=== PATIENT | female | born 1990 | race Caucasian/White ===

== ENCOUNTER 2017-02-27 13:59 | Day surgery (SDC) | payer BC ==
[2017-02-26 09:40] VITALS: BMI 23.9
[~2017-02-27 13:59] MED LIST: DEXAMETHASONE SOD PHOSPHATE 10 MG/ML 1 ML VIAL IV ONE; DEXAMETHASONE SOD PHOSPHATE 4 MG/ML 1 ML VIAL IV ONE; FAMOTIDINE 20 MG/2 ML VIAL IV ONE; HYDROmorphone 1 MG/ML 1 ML SYRINGE IVP PRN; LACTATED RINGERS 1,000 ML IV SCH; MIDAZOLAM 2 MG/2 ML VIAL IV PRN; ONDANSETRON 4 MG/2 ML VIAL IVP ONE; Pre Op ABX Message 1 EACH MISC MISCELLANE ONE; SCOPOLAMINE 1.5MG/72HR PATCH TRANSDERM ONE
[2017-02-27] MEDS ORDERED: LIDOCAINE 1% 20 ML VIAL (10MG/ML) FOR IV START INTRADERMA ONE (14:24)
[2017-02-27] MEDS ORDERED: DEXAMETHASONE SOD PHOS (MDV) 100 MG/10 ML VIAL ONE (14:59)
[2017-02-27] MEDS ORDERED: LIDOCAINE 1% INJ 10MG/ML (20 ML MDV) ONE (14:59)
[2017-02-27] MEDS ORDERED: SUCCINYLCHOLINE CHLORIDE 100 MG/5 ML SYR IV ONE (14:59)
[2017-02-27] MEDS ORDERED: fentaNYL (PF) 50 MCG/ML 2 ML AMP ONE (14:59)
[2017-02-27] MEDS ORDERED: MIDAZOLAM 2 MG/2 ML VIAL ONE (14:59)
[2017-02-27] MEDS ORDERED: PROPOFOL 10 MG/ML 20 ML VIAL IV ONE (14:59)
[2017-02-27 16:03] VITALS: TEMP 98.7
[2017-02-27] MEDS ORDERED: LACTATED RINGERS 1,000 ML IV ONE (16:36)
[2017-02-27 16:51] VITALS: RESP 18
[2017-02-27] MEDS ORDERED: ONDANSETRON 4 MG/2 ML VIAL IVP ONE (17:46)
[2017-02-27] MEDS ORDERED: PROMETHAZINE INJ 6.25 MG in SODIUM CHLORIDE 0.9% 50 ML IVPB STA (18:15)
[2017-02-27] MEDS ORDERED: PROMETHAZINE INJ 25 MG/ML 1 ML VIAL IVPB ONE (18:26)
[2017-02-27 18:39] VITALS: BP 114/73; PULSE 86
--- NOTE | 2017-02-28 06:32 | OP ---
DATE OF SERVICE: SURGEON: ORACIO THORNTON MD ENVIRONMENTAL AIR SPECIALIST: PREOPERATIVE DIAGNOSES: 1. Chronic tonsillitis. 2. Tonsillar hypertrophy. POSTOPERATIVE DIAGNOSES: 1. Chronic tonsillitis. 2. Tonsillar hypertrophy. OPERATION: Tonsillectomy. ANESTHESIA: General. ESTIMATED BLOOD LOSS: Minimal, less than 5 mL. COMPLICATIONS: None. SPECIMENS REMOVED: INDICATIONS: This is a 26-year-old white female who has had difficulties with chronic and recurrent tonsillitis as well as chronic tonsillar enlargement. OPERATIVE FINDINGS: Tonsils +3.5 on the left, +3 on the right. No adenoids noted as she is status post adenoidectomy previously with some scarring in the nasopharynx, but no sign of adenoids. DESCRIPTION OF PROCEDURE: The patient was brought to the operative suite, placed in the supine position. Patient underwent induction of general anesthesia with oral endotracheal intubation without difficulty. The patient was prepped and draped in the usual aseptic fashion. The McIvor mouth gag was placed. The soft palate was palpated. No submucous cleft was noted. Nasopharynx was examined with a mirror exam and the above-noted findings noted and therefore no adenoidectomy was performed. The left tonsil was grasped with a curved Allis clamp and dissected from the tonsillar fossa in a superior to inferior direction using both blunt and electrocautery dissection in a superior to inferior direction until the tonsil was removed. Once the tonsil was removed, hemostasis was gained with suction cautery. Once the hemostasis was gained, attention was turned to the right, where the right tonsil was removed exactly as the left had been. Once this tonsil was removed, hemostasis was gained with suction cautery. Once hemostasis was obtained and remained good in both tonsillar fossae, the patient was suctioned in an orogastric fashion. The patient was allowed to emerge from general anesthesia, having tolerated the procedure well. She was extubated in the operating suite and transferred to postop recovery area in satisfactory condition.
== END 2017-02-27 18:57 | disposition home or self-care (01) ==
LOC: OR 13:59
PROVIDERS: ATTEND Otolaryngology
DX: J35.01 Chronic tonsillitis (principal)
CPT/HCPCS: 81025; 42826; J2250; J1100 ×2; J2550; J2405; J2001; J3010; J1170; J0330; J2704; 88304

== ENCOUNTER → 2019-06-07 | Outpatient (CLI) | payer OTHER | END | disposition home or self-care (01) | LOC: LABWHC1 17:17 | PROVIDERS: ATTEND Obstetrics & Gynecology | DX: Z34.01 Encounter for supervision of normal first pregnancy, first trimester (principal) | CPT/HCPCS: 86850; 86900; 86901 ==

== ENCOUNTER 2020-01-25 06:00 | Inpatient (IN) | payer BC ==
[2020-01-25] MEDS ORDERED: OXYTOCIN 30 UNITS/500 ML NS 30 UNIT in SALINE 1 500ML.BAG IV SCH (07:15)
[2020-01-25] MEDS ORDERED: LIDOCAINE 0.5% (PF) 5 MG/ML (50 ML SDV) SQ PRN (07:15)
[2020-01-25] MEDS ORDERED: METHYLERGONOVINE 0.2 MG/ML 1 ML AMP IM PRN (07:15)
[2020-01-25] MEDS ORDERED: OXYTOCIN 10 UNIT/ML 1 ML VIAL IM PRN (07:15)
[2020-01-25] MEDS ORDERED: CARBOPROST TROMETHAMINE 250 MCG/ML 1 ML AMP IM PRN (07:15)
[2020-01-25] MEDS ORDERED: TERBUTALINE 1 MG/ML VIAL SQ PRN (07:15)
[2020-01-25 07:27] LABS: Basophils % (A) 0 %; Eosinophils # (A) 0.1 k/uL (0-0.7); Eosinophils % (A) 1 %; HCT 39.5 % (34.0-46.0); HGB 13.1 gm/dL (11.4-16.0); Lymphocytes # (A) 2.4 k/uL (1.0-4.8); Lymphocytes % (A) 20 %; MCH 30.5 pg (25.0-35.0); MCHC 33.2 g/dL (31.0-37.0); MCV 91.8 fL (80.0-100.0); Mean Platelet Volume 10.9; Monocytes # (A) 0.5 k/uL (0-1.0); Monocytes % (A) 4 %; Neutrophils # (A) 8.7 k/uL (1.3-7.7); Neutrophils % (A) 73 %; Platelet Count 138 k/uL (150-450); RBC 4.31 m/uL (3.80-5.40); RDW 12.7 % (11.5-15.5); WBC 11.8 k/uL (3.8-10.6)
[2020-01-25] MEDS: LACTATED RINGERS 1,000 ML IV SCH ×2 (07:41→10:09)
[2020-01-25] MEDS ORDERED: fentaNYL (PF) 50 MCG/ML 5 ML AMP ONE (09:40)
[2020-01-25] MEDS ORDERED: ROPIVACAINE 5MG/ML 20ML VIAL ONE (09:40)
[2020-01-25] MEDS ORDERED: SODIUM CHLORIDE 0.9% 100 ML BAG ONE (09:40)
--- NOTE | 2020-01-25 12:54 | P.HPOB ---
History of Present Illness H&P Date: 01/25/20 Chief Complaint: Induction of Labor 29 year old presents at 39 weeks 5 days for induction of labor. Her cervix is 3/90/-2. She is bud irregularly. heart tones 130 with moderate variability and reactive. Review of Systems All systems: negative Constitutional: Denies chills, Denies fever Eyes: denies blurred vision, denies pain Ears, nose, mouth and throat: Denies headache, Denies sore throat Cardiovascular: Denies chest pain, Denies shortness of breath Respiratory: Denies cough Gastrointestinal: Denies abdominal pain, Denies diarrhea, Denies nausea, Denies vomiting Genitourinary: Denies dysuria, Denies hematuria Musculoskeletal: Denies myalgias Integumentary: Denies pruritus, Denies rash Neurological: Denies numbness, Denies weakness Psychiatric: Denies anxiety, Denies depression Endocrine: Denies fatigue, Denies weight change Past Medical History Past Medical History: No Reported History Additional Past Medical History / Comment(s): kidney stone History of Any Multi-Drug Resistant Organisms: None Reported Past Surgical History: Adenoidectomy, Tonsillectomy Past Anesthesia/Blood Transfusion Reactions: No Reported Reaction Additional Past Anesthesia/Blood Transfusion Reaction / Comment(s): no hx blood transfusion Past Psychological History: No Psychological Hx Reported Smoking Status: Never smoker Past Alcohol Use History: None Reported Past Drug Use History: None Reported - Past Family History Mother Family Medical History: No Reported History Father Family Medical History: No Reported History Additional Family Medical History / Comment(s): father's mother had mesothilioma lung CA Medications and Allergies Home Medications Medication Instructions Recorded Confirmed Type Pnv No.95/Ferrous Fum/Folic AC 1 tab PO DAILY 01/25/20 01/25/20 History [ Multivitamin Tablet] Allergies Allergy/AdvReac Type Severity Reaction Status Date / Time No Known Allergies Allergy Verified 01/25/20 06:16 Exam Osteopathic Statement: *. No significant issues noted on an osteopathic structu ral exam other than those noted in the History and Physical/Consult. Vital Signs Temp Resp BP Pulse Ox 01/25/20 07:26 96.9 F L 16 125/86 97 Intake and Output 01/24/20 01/25/20 01/25/20 22:59 06:59 14:59 Other: Weight 82.554 kg 82.554 kg Heart: RRR Lungs: CTAB Abdomen: soft, gravid, nontender Extremeties: neg zheng's Results Result Diagrams: 01/25/20 06:34 Abnormal Lab Results - Last 24 Hours (Table) 01/25/20 Range/Units 06:34 WBC 11.8 H (3.8-10.6) k/uL Plt Count 138 L (150-450) k/uL Neutrophils # 8.7 H (1.3-7.7) k/uL Assessment and Plan (1) Normal labor Current Visit: Yes Status: Acute Code(s): O80 - ENCOUNTER FOR FULL-TERM UNCOMPLICATED DELIVERY; Z37.9 - OUTCOME OF DELIVERY, UNSPECIFIED SNOMED Code(s): 18324999 Plan: 1. induction of labor with amniotomy and pitocin 2. anticipate normal vaginal delivery
[2020-01-25] MEDS ORDERED: diphenhydrAMINE 50 MG/ML 1 ML VIAL IVP PRN ×2 (15:24)
[2020-01-25] MEDS ORDERED: SIMETHICONE 80 MG CHEWABLE PO PRN (15:24)
[2020-01-25] MEDS ORDERED: ACETAMINOPHEN TAB 325 MG TAB PO PRN (15:24)
[2020-01-25] MEDS ORDERED: diphenhydrAMINE 25 MG CAP PO PRN (15:24)
[2020-01-25] MEDS ORDERED: ZOLPIDEM 5 MG TAB PO PRN (15:24)
[2020-01-25] MEDS ORDERED: diphenhydrAMINE 50 MG CAP PO PRN (15:24)
[2020-01-25] MEDS ORDERED: LANOLIN CREAM 5 GM TUBE TOPICAL PRN (15:24)
[2020-01-25] MEDS ORDERED: BENZOCAINE/MENTHOL SPRAY 1 GM/SPRAY AEROSOL TOPICAL PRN (15:24)
[2020-01-25] MEDS ORDERED: HYDROCORTISONE 2.5% RECTAL CREAM 30 GM TUBE RECTAL PRN (15:24)
[2020-01-25] MEDS ORDERED: WITCH HAZEL 1 EACH MED..PAD TOPICAL PRN (15:24)
[2020-01-25] MEDS ORDERED: OXYTOCIN 20 UNITS/1000 ML NS 1,000 ML IV SCH (15:30)
[2020-01-25] MEDS: IBUPROFEN 600 MG TAB PO PRN (15:34)
[2020-01-25] MEDS: SENNOSIDES-DOCUSATE SODIUM 1 EACH TAB PO SCH (20:52)
[2020-01-25] MEDS ORDERED: guaiFENesin-DM 100-10MG/5ML 10 ML CUP PO PRN (20:58)
[2020-01-25] MEDS ORDERED: BENZOCAINE/MENTHOL LOZENG 1 EACH LOZENGE MUCOUS MEM PRN (20:59)
[2020-01-26] MEDS: IBUPROFEN 600 MG TAB PO PRN ×2 (07:59→18:52)
[2020-01-26] MEDS: SENNOSIDES-DOCUSATE SODIUM 1 EACH TAB PO SCH ×2 (07:59→20:34)
--- NOTE | 2020-01-26 11:25 | P.PROBDLV ---
Vaginal Delivery Note - . Vaginal Delivery Note: 29 year old presents at 39 weeks 5 days for induction of labor. Her cervix is 3/90/-2. She is bud irregularly. heart tones 130 with moderate variability and reactive. Amniotomy was performed at 7:13 AM clear fluid noted. Pitocin was also started. When she was uncomfortable she did get an epidural. Her cervix was completely dilated at 1335. She pushed, and delivered a viable male infant over midline episiotomy under epidural anesthesia. Head delivered OA, anterior shoulder delivered gentle downward guidance followed by posterior shoulder and rest of body. Nose and mouth bulb suctioned, cord clamped and cut, infant placed mother's abdomen. Apgars 7, 9, weight 7 lbs. 7 oz. Placenta delivered spontaneously, intact with three-vessel cord at 1451. Vagina, cervix, perineum inspected. Second-degree midline episiotomy was repaired with 2-0 Vicryl and 3-0 Vicryl. Estimated blood loss 200 mL. Mother and baby in stable condition.
--- NOTE | 2020-01-26 11:27 | P.DS ---
Providers Date of admission: 01/25/20 06:02 Expected date of discharge: 01/26/20 Attending physician: Cari Casper Primary care physician: Stated None - Discharge Diagnosis(es) (1) Normal labor Current Visit: Yes Status: Resolved (2) Normal vaginal delivery Current Visit: Yes Status: Acute Hospital Course: Patient presented for induction of labor. She underwent normal vaginal delivery. Her course was uncomplicated. She'll be discharged home day #1 in stable condition to follow-up with me in 6 weeks. Plan - Discharge Summary New Discharge Prescriptions: New Ibuprofen [Motrin] 600 mg PO Q6HR PRN #30 tab PRN Reason: Mild Pain Or Fever >= 100.5 No Action Pnv No.95/Ferrous Fum/Folic AC [ Multivitamin Tablet] 1 tab PO DAILY Discharge Medication List Pnv No.95/Ferrous Fum/Folic AC [ Multivitamin Tablet] 1 tab PO DAILY 01/25/20 [History] Ibuprofen [Motrin] 600 mg PO Q6HR PRN #30 tab 01/26/20 [Rx] Follow up Appointment(s)/Referral(s): Cari Casper DO [Doctor of Osteopathic Medicine] - 6 Weeks Discharge Disposition: HOME SELF-CARE
[2020-01-26 17:07] VITALS: RESP 16
[2020-01-26 23:29] VITALS: TEMP 98.1
[2020-01-27 08:59] VITALS: BP 115/79; PULSE 79
[2020-01-27] MEDS: SENNOSIDES-DOCUSATE SODIUM 1 EACH TAB PO SCH (11:26)
== END 2020-01-27 16:05 | disposition home or self-care (01) | DRG 807 ==
LOC: 4FBP 06:02
PROVIDERS: ADMIT Obstetrics & Gynecology; ATTEND Obstetrics & Gynecology
PROC: 0W8NXZZ Division of Female Perineum, External Approach (ICD-10-PCS; principal; 2020-01-25 06:00)
PROC: 10E0XZZ Delivery of Products of Conception, External Approach (ICD-10-PCS; principal; 2020-01-25 06:00)
PROC: 00HU33Z Insertion of Infusion Device into Spinal Canal, Percutaneous Approach (ICD-10-PCS; principal; 2020-01-25 06:00)
PROC: 3E0R3BZ Introduction of Anesthetic Agent into Spinal Canal, Percutaneous Approach (ICD-10-PCS; principal; 2020-01-25 06:00)
DX: O80 Encounter for full-term uncomplicated delivery (principal); Z37.0 Single live birth; Z3A.39 39 weeks gestation of pregnancy; Z87.442 Personal history of urinary calculi; Z80.1 Family history of malignant neoplasm of trachea, bronchus and lung
CPT/HCPCS: 85025; 86850; 86900; 86901

== ENCOUNTER 2023-07-03 05:47 | Inpatient (IN) | payer BC ==
[2023-07-03] MEDS ORDERED: miSOPROStoL 200 MCG TAB PO PRN (06:15)
[2023-07-03] MEDS ORDERED: LIDOCAINE 0.5% (PF) 5 MG/ML (50 ML SDV) SQ PRN (06:15)
[2023-07-03] MEDS ORDERED: LACTATED RINGERS 1,000 ML IV SCH (06:15)
[2023-07-03] MEDS ORDERED: OXYTOCIN 10 UNIT/ML 1 ML VIAL IM PRN (06:15)
[2023-07-03] MEDS ORDERED: TRANEXAMIC 1,000 MG/100ML-NACL 1,000 MG in EMPTY BAG 1 BAG IV PRN (06:15)
[2023-07-03] MEDS ORDERED: TERBUTALINE 1 MG/ML VIAL SQ PRN (06:15)
[2023-07-03] MEDS ORDERED: METHYLERGONOVINE 0.2 MG/ML 1 ML AMP IM PRN (06:15)
[2023-07-03] MEDS ORDERED: OXYTOCIN 30 UNITS/500 ML NS 30 UNIT in SALINE 1 500ML.BAG IV SCH ×2 (06:15→08:20)
[2023-07-03] MEDS ORDERED: CARBOPROST TROMETHAMINE 250 MCG/ML 1 ML AMP IM PRN (06:15)
[2023-07-03 06:25] LABS: Basophils # (A) 0.1 k/uL (0-0.2); Basophils % (A) 0 %; Eosinophils # (A) 0.2 k/uL (0-0.7); Eosinophils % (A) 1 %; HCT 42.7 % (34.0-46.0); HGB 14.5 gm/dL (11.4-16.0); Lymphocytes # (A) 2.7 k/uL (1.0-4.8); Lymphocytes % (A) 14 %; MCH 30.8 pg (25.0-35.0); MCV 90.4 fL (80.0-100.0); Mean Platelet Volume 12.8; Monocytes # (A) 0.7 k/uL (0-1.0); Monocytes % (A) 4 %; Neutrophils # (A) 14.8 k/uL (1.3-7.7); Neutrophils % (A) 79 %; RBC 4.73 m/uL (3.80-5.40); RDW 13.3 % (11.5-15.5); WBC 18.7 k/uL (3.8-10.6)
[2023-07-03 06:27] LABS: Platelet Count 92 k/uL (150-450)
--- NOTE | 2023-07-03 07:47 | P.HPOB ---
History of Present Illness H&P Date: 07/03/23 Chief Complaint: Contractions This is a 32-year-old female 2 para 1 at 39-5/7 weeks with an estimated date of confinement of 07/05/2023, who presented with complaints of contractions that started earlier this morning and became regular and strong. She has seen Dr. Casper for her care. course has been complicated by thrombocytopenia and she has seen hematology. She has not received any platelet transfusions. labs: Group B streptococcus-negative One hour Glucola-136, three-hour Glucola-within normal limits Blood type-A+ Antibody screen-negative Rubella-immune RPR-nonreactive HIV-nonreactive Hepatitis C virus-negative Random glucose-114 Hepatitis B surface antigen-negative GC/chlamydia/Trichomonas-negative Obstetrical history: . History of 1 vaginal delivery at term. Social history: She is . She works as a teacher. Review of Systems Constitutional: Denies chills, Denies fever Eyes: denies blurred vision, denies pain Ears, nose, mouth and throat: Denies headache, Denies sore throat Cardiovascular: Denies chest pain, Denies shortness of breath Respiratory: Denies cough Gastrointestinal: Reports abdominal pain (Contractions) Genitourinary: Reports pelvic pain, Reports Musculoskeletal: Reports low back pain Integumentary: Denies pruritus, Denies rash Neurological: Denies numbness, Denies weakness Psychiatric: Denies anxiety, Denies depression Past Medical History Past Medical History: No Reported History Additional Past Medical History / Comment(s): kidney stone History of Any Multi-Drug Resistant Organisms: None Reported Past Surgical History: Adenoidectomy, Tonsillectomy Past Anesthesia/Blood Transfusion Reactions: No Reported Reaction Additional Past Anesthesia/Blood Transfusion Reaction / Comment(s): no hx blood transfusion Past Psychological History: No Psychological Hx Reported Smoking Status: Never smoker Past Alcohol Use History: None Reported Past Drug Use History: None Reported - Past Family History Mother Family Medical History: No Reported History Father Family Medical History: No Reported History Additional Family Medical History / Comment(s): father's mother had mesothilioma lung CA Medications and Allergies Home Medications Medication Instructions Recorded Confirmed Type Pnv No.95/Ferrous Fum/Folic AC 1 tab PO DAILY 01/25/20 07/03/23 History [ Multivitamin Tablet] Allergies Allergy/AdvReac Type Severity Reaction Status Date / Time No Known Allergies Allergy Verified 07/03/23 05:53 Exam Osteopathic Statement: *. No significant issues noted on an osteopathic structural exam other than those noted in the History and Physical/Consult. Vital Signs Temp Pulse Resp BP Pulse Ox 07/03/23 06:22 97.9 F 89 18 124/82 100 Intake and Output 07/02/23 07/03/23 07/03/23 22:59 06:59 14:59 Other: Weight 81.647 kg Gen.: Gravid female in mild distress due to contractions HEENT: Within normal limits Heart: Regular rate and rhythm Lungs: Clear to auscultation bilaterally Abdomen: Cervix: Currently is 9 cm with bulging bag artificial rupture membranes is carried out with clear fluid noted. heart tones: Reactive with accelerations and moderate variability, occa sional variable decelerations which are mild. Contractions: Every 2-3 minutes Extremities: Negative Homans Results Result Diagrams: 07/03/23 06:14 Abnormal Lab Results - Last 24 Hours (Table) 07/03/23 Range/Units 06:14 WBC 18.7 H (3.8-10.6) k/uL Plt Count 92 L (150-450) k/uL Neutrophils # 14.8 H (1.3-7.7) k/uL Assessment and Plan (1) 39 weeks gestation of Current Visit: Yes Status: Acute Code(s): Z3A.39 - 39 WEEKS GESTATION OF SNOMED Code(s): 77435467 (2) Thrombocytopenia affecting Current Visit: Yes Status: Acute Code(s): O99.119 - OTH DIS OF BLD/BLD-FORM ORG/IMMUN MECHNSM COMP PREG,UNSP TRI; D69.6 - THROMBOCYTOPENIA, UNSPECIFIED SNOMED Code(s): 860392361 Plan: Admission for active labor. Expectant management. Epidural was not able to be given due to her platelet count.
--- NOTE | 2023-07-03 08:04 | P.PROBDLV ---
Vaginal Delivery Note - . Vaginal Delivery Note: 32-year-old presents at 39 weeks and 5 days in active labor. Her cervix was 6 cm dilated when she arrived. She is bud every 2-4 minutes. heart tones 135 with moderate variability and reactive. Amniotomy performed at 734 and clear fluid noted. She was completely dilated by 7:48 AM. She pushed, delivered a viable female over intact perineum at 7:50 AM. Head delivered OA, nuchal cord 1 easily reduced, anterior shoulder delivered gentle downward guidance for by posterior shoulder and rest of body. Nose and mouth bulb suctioned, cord clamped and cut, placed mother's abdomen. Apgars 8, 9, weight 7 lbs. 13 oz. Placenta delivered spontaneously, intact with three- vessel cord at 751. Vagina, cervix, perineum inspected. First-degree. Periurethral laceration was repaired with 3-0 Vicryl. Estimated blood loss 150 mL. Mother and baby in stable condition.
--- NOTE | 2023-07-03 08:06 | P.MSEPDOC ---
Presenting Problems - Arrival Data Date of Arrival on Unit: 07/03/23 Time of Arrival on Unit: 05:58 Mode of Transport: Ambulatory - Complaint OB-Reason for Admission/Chief Complaint: Possible Onset of Labor Medical History - Information : 2 Para: 1 Term: 1 : 0 Abortions: Spontaneous or Elective: 0 Number of Living Children: 1 - Gestational Age Gestational Age by LUANNE (wks/days): 39 Weeks and 5 Days Review of Systems - Review of Systems Constitutional: No problems Breast: No problems ENT: No problems Cardiovascular: No problems Respiratory: No problems Gastrointestinal: No problems Genitourinary: No problems Musculoskeletal: No problems Neurological: No problems Skin: No problems Vital Signs - Temperature Temperature: 97.9 F Temperature Source: Temporal Artery Scan - Pulse Pulse Oximetery Pulse Rate: 89 Pulse Assessment Method: Pulse Oximetry - Respirations Respiratory Rate: 18 Oxygen Delivery Method: Room Air O2 Sat by Pulse Oximetry: 100 - Blood Pressure Right Arm Blood Pressure: 124/82 Blood Pressure Mean: 96 Medical Screen Scoring - Cervical Exam Dilation (cm): 6 Effacement (%): 100 Station: -3 Membranes: Intact - Uterine Contractions Frequency From (mins): 2 Frequency To (mins): 3 Duration From (seconds): 40 Duration To (seconds): 80 Intensity: Strong Resting: Soft to palpation - Assessment - Baby A Baseline FHR: 145 Heart Rate - NICHD Category: Category I (Normal) NST: Reactive Physician Notification - Physician Notified Physician Notified Date: 07/03/23 Physician Notified Time: 06:22 Physician: Beryl Nolasco Order Received: Yes Maternal Triage Index - Maternal Triage Index Presenting for scheduled procedure w/no complaint: No - Stat/Priority 1 Stat Priority 1: No - Urgent/Priority 2 Urgent Priority 2: No - Prompt/Priority 3 Prompt Priority 3: No - Non-Urgent/Priority 4 Non-Urgent Priority 4: Yes Criteria Met for Priority 4: Pt is a with LUANNE 07/05/23 here at 39.5 weeks of gestation with c/o UC's since [id number]. Disposition - Disposition OB Disposition: Admit Transferred to:: [facility] I agree with the RN Medical Screening Exam: Yes Case reviewed; plan agreed upon as documented in EMR&OBIX.: Yes Diagnosis: ENCOUNTER FOR FULL-TERM UNCOMPLICATED DELIVERY
[2023-07-03] MEDS ORDERED: diphenhydrAMINE 50 MG CAP PO PRN (08:20)
[2023-07-03] MEDS ORDERED: diphenhydrAMINE 25 MG CAP PO PRN (08:20)
[2023-07-03] MEDS ORDERED: ZOLPIDEM 5 MG TAB PO PRN (08:20)
[2023-07-03] MEDS ORDERED: diphenhydrAMINE 50 MG/ML 1 ML VIAL IVP PRN ×2 (08:20)
[2023-07-03] MEDS ORDERED: SIMETHICONE 80 MG CHEWABLE PO PRN (08:20)
[2023-07-03] MEDS ORDERED: ACETAMINOPHEN TAB 325 MG TAB PO PRN (08:20)
[2023-07-03] MEDS ORDERED: LANOLIN CREAM 5 GM TUBE TOPICAL PRN (08:20)
[2023-07-03] MEDS ORDERED: HYDROCORTISONE 2.5% RECTAL CREAM 30 GM TUBE RECTAL PRN (08:20)
[2023-07-03] MEDS ORDERED: BENZOCAINE/MENTHOL SPRAY 1 GM/SPRAY AEROSOL TOPICAL PRN (08:20)
[2023-07-03] MEDS: IBUPROFEN 600 MG TAB PO PRN ×2 (08:29→20:42)
[2023-07-03 09:00] VITALS: RESP 16
[2023-07-03] MEDS: PRENATAL VIT-IRON-FOLIC ACID 1 EACH TABLET PO SCH (14:43)
[2023-07-03] MEDS: SENNOSIDES-DOCUSATE SODIUM 1 EACH TAB PO SCH ×2 (14:43→20:43)
[2023-07-03 20:53] VITALS: TEMP 98.1
[2023-07-04 05:39] LABS: Basophils % (A) 0 %; Eosinophils # (A) 0.1 k/uL (0-0.7); Eosinophils % (A) 1 %; HCT 33.4 % (34.0-46.0); Lymphocytes # (A) 2.9 k/uL (1.0-4.8); Lymphocytes % (A) 20 %; MCH 31.7 pg (25.0-35.0); MCHC 34.5 g/dL (31.0-37.0); MCV 91.7 fL (80.0-100.0); Mean Platelet Volume 11.5; Monocytes # (A) 0.6 k/uL (0-1.0); Monocytes % (A) 4 %; Neutrophils # (A) 10.7 k/uL (1.3-7.7); Neutrophils % (A) 74 %; RBC 3.64 m/uL (3.80-5.40); RDW 13.5 % (11.5-15.5); WBC 14.3 k/uL (3.8-10.6)
[2023-07-04 05:44] LABS: HGB 11.5 gm/dL (11.4-16.0); Platelet Count 90 k/uL (150-450)
[2023-07-04] MEDS: PRENATAL VIT-IRON-FOLIC ACID 1 EACH TABLET PO SCH (08:01)
[2023-07-04] MEDS: IBUPROFEN 600 MG TAB PO PRN (08:01)
[2023-07-04] MEDS: SENNOSIDES-DOCUSATE SODIUM 1 EACH TAB PO SCH (08:01)
[2023-07-04 09:15] VITALS: BP 113/69; PULSE 63
--- NOTE | 2023-07-04 09:29 | P.DS ---
Providers Date of admission: 07/03/23 06:04 Expected date of discharge: 07/04/23 Attending physician: Cari Casper Primary care physician: Stated None - Discharge Diagnosis(es) (1) Normal vaginal delivery Current Visit: No Status: Acute Hospital Course: Patient presented in active labor. She underwent a normal vaginal delivery. Post course was uneventful. She denies nausea, vomiting, chest pain, shortness of breath or calf pain. Her lochia is minimal. She'll be discharged home day #1 in stable condition to follow-up with me in 6 weeks. Plan - Discharge Summary New Discharge Prescriptions: New Ibuprofen [Motrin] 600 mg PO Q6HR PRN #30 tab PRN Reason: Mild Pain Or Fever >= 100.5 No Action Pnv No.95/Ferrous Fum/Folic AC [ Multivitamin Tablet] 1 tab PO DAILY Discharge Medication List Pnv No.95/Ferrous Fum/Folic AC [ Multivitamin Tablet] 1 tab PO DAILY 01/25/20 [History] Ibuprofen [Motrin] 600 mg PO Q6HR PRN #30 tab 07/04/23 [Rx] Follow up Appointment(s)/Referral(s): Cari Casper DO [Doctor of Osteopathic Medicine] - 08/14/23 10:30 am Discharge Disposition: HOME SELF-CARE
== END 2023-07-04 11:30 | disposition home or self-care (01) | DRG 806 ==
LOC: FBPOP 05:47 → 4FBP 06:04
PROVIDERS: ADMIT Obstetrics & Gynecology; ATTEND Obstetrics & Gynecology
PROC: 10E0XZZ Delivery of Products of Conception, External Approach (ICD-10-PCS; principal; 2023-07-03)
PROC: 0HQ9XZZ Repair Perineum Skin, External Approach (ICD-10-PCS; 2023-07-03)
PROC: 0UQMXZZ Repair Vulva, External Approach (ICD-10-PCS; 2023-07-03)
PROC: 10907ZC Drainage of Amniotic Fluid, Therapeutic from Products of Conception, Via Natural or Artificial Opening (ICD-10-PCS; 2023-07-03)
DX: O69.81X0 Labor and delivery complicated by cord around neck, without compression, not applicable or unspecified (principal); O71.82 Other specified trauma to perineum and vulva; O99.12 Other diseases of the blood and blood-forming organs and certain disorders involving the immune mechanism complicating childbirth; Z37.0 Single live birth; O62.3 Precipitate labor; O70.0 First degree perineal laceration during delivery; D69.6 Thrombocytopenia, unspecified; Z3A.39 39 weeks gestation of pregnancy; Z87.442 Personal history of urinary calculi
CPT/HCPCS: 85025; 86850; 86900; 86901; 99213